=== PATIENT | female | born 1995 | race African-American/Black ===

== ENCOUNTER 2018-03-23 22:10 | Emergency (ER) | payer OTHER ==
[~2018-03-23] VITALS: Ht 134.6 cm; Wt 61.2 kg
[2018-03-23] MEDS ORDERED: SILVER SULFADIAZINE 50GM CREAM TOP STA (22:27)
== END 2018-03-23 23:00 | disposition home or self-care (01) ==
LOC: EDSEX 22:10 → ER 22:10
DX: T22.211A Burn of second degree of right forearm, initial encounter (principal); T65.891A Toxic effect of other specified substances, accidental (unintentional), initial encounter
CPT/HCPCS: 99282

== ENCOUNTER 2018-04-19 18:59 | Emergency (ER) | payer SELFPAY ==
[~2018-04-19] VITALS: Ht 134.6 cm; Wt 61.2 kg
[2018-04-19] MEDS ORDERED: IBUPROFEN 600 MG TAB PO STA (19:25)
[2018-04-19] MEDS ORDERED: DEXAMETHASONE SOD PHOS 10 MG/1 ML VIAL INJ ONE (19:30)
[2018-04-19] MEDS ORDERED: ACETAMINOPHEN/CODEINE ELIX 120-12 MG/5 ML UDC PO ONE (19:30)
[2018-04-19] MEDS ORDERED: ONDANSETRON HCL 4 MG ORAL DISINTEGRATING TAB ONE (19:32)
[2018-04-19] MEDS ORDERED: ONDANSETRON HCL 4 MG ORAL DISINTEGRATING TAB PO ONE (19:45)
[2018-04-19] MEDS ORDERED: ACETAMINOPHEN/CODEINE ELIX 120-12 MG/5 ML UDC PO NR (20:00)
[2018-04-19 20:07] LABS: STREPTOCOCCUS GRP A ANTIGEN NEGATIVE (NEGATIVE)
--- NOTE | 2018-04-19 20:14 | Diagnostic Imaging Report ---
EXAMINATION: CHEST 2 VIEWS INDICATION: Cough. Runny nose. COMPARISON: None FINDINGS: TUBES and LINES: None. LUNGS: Lungs are well inflated. Perihilar peribronchial hazy opacity could be due to bronchitis. There is no evidence of pneumonia or pulmonary edema. PLEURA: No pleural effusion or pneumothorax. HEART AND MEDIASTINUM: The cardiomediastinal silhouette is unremarkable. BONES AND SOFT TISSUES: No acute osseous lesion. Soft tissues are unremarkable. UPPER ABDOMEN: No free air under the diaphragm. IMPRESSION: Perihilar peribronchial hazy opacity could be due to bronchitis. Signed by: Dr. Joseph Vieira M.D. on 04/19/2018 8:10 PM
[2018-04-19 20:17] LABS: INFLUENZAE A&B ANTIGEN (RAPID) NEGATIVE (NEGATIVE)
== END 2018-04-19 20:22 | disposition home or self-care (01) ==
LOC: ER 18:59
DX: R50.9 Fever, unspecified (principal); R05 Cough; J20.9 Acute bronchitis, unspecified; J02.9 Acute pharyngitis, unspecified; J01.00 Acute maxillary sinusitis, unspecified
CPT/HCPCS: 71046; 83518; 87070; 87400; 99283; J1100; Q0162

== ENCOUNTER 2020-04-26 16:13 | Emergency (ER) | payer SELFPAY ==
[~2020-04-26] VITALS: Ht 134.6 cm; Wt 61.2 kg
[2020-04-26] MEDS ORDERED: LEVETIRACETAM 500MG/5ML VIAL 500 MG in SODIUM CHLORIDE 0.9% 100 ML 100 ML IV SCH ×4 (16:45)
[2020-04-26 17:06] LABS: BASOPHILS % 0.6 % (0.0-1.0); EOSINOPHILS # (AUTO) 0.1 (0.0-0.4); EOSINOPHILS % 0.7 % (0.0-6.0); HEMATOCRIT 38.2 % (34.2-44.1); HEMOGLOBIN 11.9 g/dL (12.0-16.0); LYMPHOCYTES # (AUTO) 0.5 (1.0-3.2); LYMPHOCYTES % 6.6 % (18.0-39.1); MEAN CORPUSCULAR HEMOGLOBIN 26.3 pg (28-32); MEAN CORPUSCULAR HGB CONC 31.2 g/dL (31-35); MEAN CORPUSCULAR VOLUME 84.3 fL (81-99); MONOCYTES % 14.3 % (4.4-11.3); NEUTROPHILS # (AUTO) 5.5 (2.1-6.9); PLATELET COUNT 431 x10e3/uL (140-360); RED BLOOD COUNT 4.53 x10e6/uL (3.6-5.1); RED CELL DISTRIBUTION WIDTH 14.8 % (11.7-14.4)
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
--- NOTE | 2020-04-26 17:17 | Diagnostic Imaging Report ---
History: Seizure Comparison studies: None Technique: Axial images were obtained from the skull base to the vertex. Coronal and sagittal reconstructions obtained from the axial data. Dose modulation, iterative reconstruction, and/or weight based adjustment of the mA/kV was utilized to reduce the radiation dose to as low as reasonably achievable. Intravenous contrast: None Findings: Scalp/skull: No abnormalities. No fractures, blastic or lytic lesions. Extra-axial spaces: No masses. No fluid collections. Brain sulci: Appropriate for age. Ventricles: Normal in size and configuration. No hydrocephalus. Parenchyma: No abnormal densities. No masses, hemorrhage, acute or chronic cortical vascular insults. Sellar/suprasellar region: No abnormalities Craniocervical junction: Patent foramen magnum. No Chiari one malformation. Incidental findings: None. IMPRESSION: No abnormalities. Signed by: Dr. Samuel Tran M.D. on 04/26/2020 5:13 PM
[2020-04-26 17:18] LABS: AMPHETAMINES SCREEN,URINE NEGATIVE (NEGATIVE); BENZODIAZEPINES SCREEN,URINE NEGATIVE (NEGATIVE); PHENCYCLIDINE SCREEN,URINE NEGATIVE (NEGATIVE)
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
[2020-04-26 17:19] LABS: BILIRUBIN,URINE NEGATIVE (NEGATIVE); CLARITY,URINE SL CLOUDY (CLEAR); COLOR,URINE YELLOW (YELLOW); KETONES,URINE 1+ (NEGATIVE); LEUKOCYTE ESTERASE ,URINE NEGATIVE (NEGATIVE); NITRITE,URINE NEGATIVE (NEGATIVE); PROTEIN,URINE DIPSTICK NEGATIVE (NEGATIVE); URINE UROBILINOGEN 1 mg/dL (0.2 - 1)
[2020-04-26 17:26] LABS: ALANINE AMINOTRANSFERASE 51 IU/L (0-55); ALBUMIN 4.3 g/dL (3.5-5.0); ALKALINE PHOSPHATASE 69 IU/L (40-150); ANION GAP 12.8 mmol/L (8-16); BLOOD UREA NITROGEN 6 mg/dL (7-26); BUN/CREATININE RATIO 7 (6-25); CALCIUM 9.5 mg/dL (8.4-10.2); CARBON DIOXIDE 26 mmol/L (22-29); CHLORIDE 100 mmol/L (98-107); CREATININE, SERUM 0.88 mg/dL (0.57-1.11); EST GLOMERULAR FILTRATION RATE > 60 ML/MIN (60-); GLUCOSE 105 mg/dL (74-118); POTASSIUM 3.8 mmol/L (3.5-5.1); SODIUM 135 mmol/L (136-145)
[2020-04-26] MEDS: IBUPROFEN 600 MG TAB PO STA (17:27)
[2020-04-26] MEDS: LEVETIRACETAM 500MG/5ML VIAL 1,000 MG in SODIUM CHLORIDE 0.9% 100 ML IV ONE (17:28)
[2020-04-26] MEDS: ACETAMINOPHEN 325 MG TAB PO ONE (17:28)
[2020-04-26 17:38] LABS: BACTERIA,URINE MODERATE /HPF; EPITHELIAL CELLS,URINE FEW /LPF
--- NOTE | 2020-04-26 18:30 | Diagnostic Imaging Report ---
EXAMINATION: CHEST SINGLE (PORTABLE) COMPARISON: None INDICATION: Seizure ^Y ^fever ^[id number] ^1645 DISCUSSION: Frontal view of the chest obtained at 1659 hours. HEART AND MEDIASTINUM: The cardiomediastinal silhouette is unremarkable. LINES: None. LUNGS: The lungs are well inflated and clear. No pneumonia or pulmonary edema. PLEURA: No pleural effusion or pneumothorax. BONES AND SOFT TISSUES: No focal osseous lesion. The soft tissues are normal. IMPRESSION: No acute cardiopulmonary disease. Signed by: Dr. Irais Ventura MD on 04/26/2020 6:27 PM
--- NOTE | 2020-04-26 19:54 | Emergency Department Note ---
History of Present Illnes History of Present Illness Chief Complaint: Seizure History of Present Illness This is a 24 year old female that has a history of seizure disorder but has not had a seizure in 2-3 years. Patient is not currently on any medication. Patient had at least an episode of 30 minutes that was marked by 3 seizures anywhere from 2:55 minutes without a lucid interval in between. Patient with a prolonged postictal period started feeling ill today, body aches. He isn't febrile to 102 on arrival. . multiple seizures, oral movement, loss of postural tone, no GTC like activity Historian: Patient, Alterations Supervisor/EMS Arrival Mode: [facility] Treatment COLLEGE ARCHIVIST: IV Additional Treatment COLLEGE ARCHIVIST: NONE Onset (how long ago): day(s) (1) Radiation: Reports non-radiation Severity: severe Onset quality: gradual Duration (how long): day(s) (1) Timing of current episode: constant Progression: resolved Chronicity: recurrent Context: Reports recent illness Relieving factors: none Exacerbating factors: none Associated symptoms: Reports denies other symptoms Treatments prior to arrival: none Past Medical/Family History Physician Review I have reviewed the patient's past medical and family history. Any updates have been documented here. Past Medical History Recent Fever: Yes (101.2) Clinical Suspicion of Infectio: No New/Unexplained Change in Ment: No Past Medical History: Asthma, Seizure Disorder Other Medical History: EPILEPSY Past Surgical History: None Social History Smoking Cessation: Never Smoker Counseling Performed: No Alcohol Use: None Any Illegal Drug Use: No Other Last Tetanus: UTD Any Pre-Existing Lines (PICC,: No Review of Systems ROS Narrative Unable to obtain ROS: Unable to obtain due to, other (post ictal, confused) Physical Exam Related Data Allergies: Coded Allergies: No Known Allergies (Unverified , 03/23/18) Triage Vital Signs Vital Signs Date Time Temp Pulse Resp B/P (MAP) Pulse Ox O2 Delivery O2 Flow Rate FiO2 04/26/20 16:37 101.2 119 18 114/78 98 Room Air Vital signs reviewed: Yes Physical Exam CONSTITUTIONAL Constitutional: Present well-developed, Present well-nourished HENT HENT: Present normocephalic, Present atraumatic, Present oropharynx clear/moist, Present nose normal HENT L/R: Present left ext ear normal, Present right ext ear normal EYES Eyes: Reports PERRL, Reports conjunctivae normal NECK Neck: Present ROM normal PULMONARY Pulmonary: Present effort normal, Present breath sounds normal CARDIOVASCULAR Cardiovascular: Present regular rhythm, Present heart sounds normal, Present capillary refill normal, Present tachycardia GASTROINTESTINAL Abdominal: Present soft, Present nontender, Present bowel sounds normal GENITOURINARY Genitourinary: Present exam deferred SKIN Skin: Present warm, Present dry MUSCULOSKELETAL Musculoskeletal: Present ROM normal NEUROLOGICAL Neurological: Present alert, Present oriented x 3, Present no gross motor or sensory deficits PSYCHOLOGICAL Psychological: Present mood/affect normal, Present judgement normal Results Laboratory Result Diagram: 04/26/20165504/26/201655 Laboratory Laboratory Tests Test 04/26/20 19:00 04/26/20 18:44 04/26/20 17:10 04/26/20 16:56 Lactic Acid Level 0.8 mmol/L (0.5-2.0) Coronavirus (PCR) Detected (NOTDETECTED) Urine Color Yellow (YELLOW) Urine Clarity Sl cloudy (CLEAR) Urine pH 7 (5 - 7) Urine Specific [place] 1.025 (1.010-1.025) Urine Protein Negative (NEGATIVE) Urine Glucose (UA) Negative (NEGATIVE) Urine Ketones 1+ (NEGATIVE) Urine Blood Moderate (NEGATIVE) Urine Nitrite Negative (NEGATIVE) Urine Bilirubin Negative (NEGATIVE) Urine Urobilinogen 1 mg/dL (0.2 - 1) Urine Leukocyte Esterase Negative (NEGATIVE) Urine RBC 6-10 /HPF (0-5) Urine WBC None /HPF (0-5) Urine Epithelial Cells Few /LPF (NONE) Urine Bacteria Moderate /HPF (NONE) Urine Opiates Screen Negative (NEGATIVE) Urine Methadone Screen Negative (NEGATIVE) Urine Barbiturates Screen Negative (NEGATIVE) Urine Phencyclidine Screen Negative (NEGATIVE) Urine Amphetamines Screen Negative (NEGATIVE) Urine Methamphetamines Screen Negative (NEGATIVE) Urine Benzodiazepines Screen Negative (NEGATIVE) Urine Cocaine Screen Negative (NEGATIVE) Urine Cannabinoids Screen Negative (NEGATIVE) White Blood Count 7.12 x10e3/uL (4.8-10.8) Red Blood Count 4.53 x10e6/uL (3.6-5.1) Hemoglobin 11.9 g/dL (12.0-16.0) Hematocrit 38.2 % (34.2-44.1) Mean Corpuscular Volume 84.3 fL (81-99) Mean Corpuscular Hemoglobin 26.3 pg (28-32) Mean Corpuscular Hemoglobin Concent 31.2 g/dL (31-35) Red Cell Distribution Width 14.8 % (11.7-14.4) Platelet Count 431 x10e3/uL (140-360) Neutrophils (%) (Auto) 77.0 % (38.7-80.0) Lymphocytes (%) (Auto) 6.6 % (18.0-39.1) Monocytes (%) (Auto) 14.3 % (4.4-11.3) Eosinophils (%) (Auto) 0.7 % (0.0-6.0) Basophils (%) (Auto) 0.6 % (0.0-1.0) Neutrophils # (Auto) 5.5 (2.1-6.9) Lymphocytes # (Auto) 0.5 (1.0-3.2) Monocytes # (Auto) 1.0 (0.2-0.8) Eosinophils # (Auto) 0.1 (0.0-0.4) Basophils # (Auto) 0.0 (0.0-0.1) Absolute Immature Granulocyte (auto 0.06 x10e3/uL (0-0.1) Sodium Level 135 mmol/L (136-145) Potassium Level 3.8 mmol/L (3.5-5.1) Chloride Level 100 mmol/L (98-107) Carbon Dioxide Level 26 mmol/L (22-29) Anion Gap 12.8 mmol/L (8-16) Blood Urea Nitrogen 6 mg/dL (7-26) Creatinine 0.88 mg/dL (0.57-1.11) Estimat Glomerular Filtration Rate > 60 ML/MIN (60-) BUN/Creatinine Ratio 7 (6-25) Glucose Level 105 mg/dL (74-118) Calcium Level 9.5 mg/dL (8.4-10.2) Total Bilirubin 0.3 mg/dL (0.2-1.2) Aspartate Amino Transf (AST/SGOT) 37 IU/L (5-34) Alanine Aminotransferase (ALT/SGPT) 51 IU/L (0-55) Alkaline Phosphatase 69 IU/L (40-150) Total Protein 8.5 g/dL (6.5-8.1) Albumin 4.3 g/dL (3.5-5.0) Globulin 4.2 g/dL (2.3-3.5) Albumin/Globulin Ratio 1.0 (0.8-2.0) Human Chorionic Gonadotropin, Qual Negative (NEGATIVE) Lab results reviewed: No Imaging Imaging results reviewed: Yes Critical Care Time Total Critical Care Time (min): 31 Critical care time exclusive o: separately billable procedures Critcal care necessary due to: CRAFT DEMONSTRATOR failure or compromise Critcal care time spent by me: blood dram for specimens, discussion w consultants, evaluation patient response to tx, examination of patient, obtaining hx from patient/surrogate, order/review laboratory studies, order/review radiographic studies, pulse oximetry, re-evaluation of patient condition Assessment & Plan Medical Decision Making MDM Patient is a 24-year-old female with history of seizures but has not taken medication in 2-3 years. Patient here with concern for status epilepticus, seizure activity for approximately 30 minutes without lucid interval in between for the mother. Patient is called at 19 positive, initially febrile to 103. On reassessment around 8 PM, patient feeling better after fluids, fever decreasing. Patient will be transferred for status epilepticus. They she will be checked out to oncoming physician. Reassessment Reassessment 0830P Pt with +fever, COVID, vitals normalized patient continues at baseline. Pt's sz likely 2/2 febrile illness and COVID, no meningeal signs, no AMS, no WHITLEY, no concern meningitis at this time. Assessment & Plan Final Impression: (1) COVID-19 (2) Status epilepticus Depart Disposition: TRANS TO OTHER [facility] Last Vital Signs Date Time Temp Pulse Resp B/P (MAP) Pulse Ox O2 Delivery O2 Flow Rate FiO2 04/26/20 19:01 99.8 87 17 100/61 97 Room Air Medications in the ED Levetiracetam 500 mg/Sodium Chloride 105 ml @ 420 mls/hr Q12H IV ; Start 04/26/20 at 16:45; Stop 05/26/20 at 16:44; Status UNV Levetiracetam 500 mg/Sodium Chloride 105 ml @ 420 mls/hr Q12H IV ; Start 04/26/20 at 16:45; Stop 05/26/20 at 16:44; Status UNV Levetiracetam 1000 mg/Sodium Chloride 110 ml @ 400 mls/hr ONCE ONCE IV Last administered on 04/26/20at 17:28; Admin Dose 400 MLS/HR; Start 04/26/20 at 17:15; Stop 04/26/20 at 17:31; Status DC Acetaminophen 975 mg ONCE ONCE PO Last administered on 04/26/20at 17:28; Admin Dose 975 MG; Start 04/26/20 at 17:00; Stop 04/26/20 at 17:01; Status DC Ibuprofen 600 mg ONCE STAT PO Last administered on 04/26/20at 17:27; Admin Dose 600 MG; Start 04/26/20 at 16:49; Stop 04/26/20 at 16:53; Status DC ELIZABETH FAIRBANKS MD Apr 26, 2020 19:54
--- NOTE | 2020-04-26 20:15 | NUR ---
TRANSFER INITIATED TO [facility]; SPOKE TO CAM, [facility] - NO AVAILABILITY
--- NOTE | 2020-04-26 20:20 | NUR ---
TRANSFER INITIATED TO [facility], SPOKE TO ANGE GUSTAFSON - YAMINI BECK [facility] - NO BED AVAILABILITY [facility] - POSSIBLE AVAILABILITY, WILL CALL BACK
[2020-04-26 21:13] VITALS: BP 109/66
== END 2020-04-26 21:35 | disposition other institution (70) ==
LOC: ER 17:07
DX: U07.1 COVID-19 (principal); R50.9 Fever, unspecified; G40.901 Epilepsy, unspecified, not intractable, with status epilepticus; J45.909 Unspecified asthma, uncomplicated
CPT/HCPCS: 36415; 70450; 71045; 72125; 80053; 80307; 81001; 83605; 84702; 85025; 87040; 99284; J1953; J7050; U0002